=== PATIENT | male | born 1970 | race American Indian/Alaskan Native ===

== ENCOUNTER 2020-09-15 18:24 | Emergency (ER) | payer MEDICARE ==
[~2020-09-15 18:24] MED LIST: CALCIUM CHLORIDE 1,000 MG/10 ML SYRINGE IV ONE; EPINEPHrine 1 MG/10 ML SYRINGE ONE; SODIUM BICARB 8.4% 50 MEQ/50 ML SYRINGE IV ONE
--- NOTE | 2020-09-15 18:54 | Emergency Department Report ---
ED General Adult HPI - General Stated complaint: CARDIAC ARREST Time Seen by Provider: 09/15/20 18:44 - History of Present Illness Initial comments: The patient presents to the emergency department via EMS intubated and receiving chest compressions. Per EMS they were called to the home for possible stroke. Upon arrival the patient was in V. tach/V. fib. They state the patient's informed him that prior to their arrival the patient was shaking as if he was having a seizure. EMS upon arrival shot the patient and amiodarone was given via IV. At some point in time the patient did have return of spontaneous circulation in the field but was lost in route to the hospital. As mentioned above the patient was receiving chest compressions upon arrival to the ED. -: Sudden Severity scale (0 -10): 0 Consistency: constant Improves with: none Worsens with: none Associated Symptoms: denies other symptoms Treatments Prior to Arrival: none ED Review of Systems ROS: Stated complaint: CARDIAC ARREST Other details as noted in HPI Comment: Unobtainable due to pts medical conditions ED Physical Exam - General General appearance: other (Intubated and unresponsive) - Head Head exam: Present: atraumatic, normocephalic - Eye Eye exam: Present: other (No corneal reflex). Absent: scleral icterus, conjunctival injection - ENT ENT exam: Present: mucous membranes dry - Neck Neck exam: Absent: lymphadenopathy - Respiratory Respiratory exam: Present: other (Bilateral lung sounds with bagging via BVM) - Cardiovascular Cardiovascular Exam: Present: other (Asystole) - GI/Abdominal GI/Abdominal exam: Present: soft, hernia, other (Patient has a ventral hernia on exam) - exam: Present: other (Prior surgical scar the left femoral triangle running just superior to the medial aspect of the thigh) - Extremities Exam Extremities exam: Present: other (Pitting edema) - Neurological Exam Neurological exam: Present: other (3T) - Psychiatric Psychiatric exam: Present: other (Unable to assess due to patient's condition) - Skin Skin exam: Present: warm, dry, intact. Absent: rash ED Medical Decision Making - Medical Decision Making Upon the patient's arrival to the ED he was transferred to the hospital bed and chest compression port was placed underneath his back. Multiple rounds of ACLS protocol was followed before time of 1834. Please see code sheet for further details. Bedside ultrasound was applied at the bedside and there was no cardiac activity prior to the time of being called. Critical care attestation.: If time is entered above; I have spent that time in minutes in the direct care of this critically ill patient, excluding procedure time. ED Disposition Clinical Impression: Cardiac arrest Disposition: DC-20 Is pt being admited?: No Does the pt Need Aspirin: No Condition: Stable
== END 2020-09-16 00:10 ==
LOC: ED 18:24
DX: I46.9 Cardiac arrest, cause unspecified (principal)
CPT/HCPCS: 99285; J0171